=== PATIENT | male | born 1950 | race Caucasian/White ===

== ENCOUNTER → 2017-02-03 | Outpatient (CLI) | payer OTHER ==
[~2017-02-03] MED LIST: ASPI81TA28 PO; CRS10 PO; LOVAZA PO; VALS160T58 PO
--- NOTE | 2017-02-03 12:10 | DIAGNOSTIC IMAGING REPORT ---
BILATERAL CAROTID DOPPLER STUDY HISTORY: Mental status change CAROTID ARTERY SYNDROME COMPARISON: None. TECHNIQUE: Real-time, grayscale, and color Doppler sonography of the carotid arteries was performed. Imaging reviewed in the transverse and longitudinal planes. All measurements were calculated based on NASCET criteria. FINDINGS: Antegrade flow is seen in the bilateral vertebral arteries. The brachial pressures are hemodynamically similar. Mild plaque formation bilaterally The peak systolic velocity within the right ICA is 56. The right systolic ratio is 0.8. The peak systolic velocity within the left ICA is 63. The left systolic ratio is 0.9. IMPRESSION: No hemodynamically significant stenosis seen within the carotid arteries. Mild plaque formation bilaterally Electronically signed by: Marcos Cedillo M.D. 02/03/2017 12:09 PM Dictated Date/Time: 02/03/2017 12:08 PM
== END | disposition home or self-care (01) ==
LOC: C.ULTR 09:25
PROVIDERS: ATTEND Physician Assistant
DX: G45.1 Carotid artery syndrome (hemispheric) (principal)

== ENCOUNTER → 2017-08-21 | Outpatient (CLI) | payer OTHER ==
--- NOTE | 2017-08-21 14:21 | DIAGNOSTIC IMAGING REPORT ---
CT SCAN OF THE ABDOMEN AND PELVIS WITH IV CONTRAST CLINICAL HISTORY: Abdominal aortic aneurysm. COMPARISON STUDY: No priors. TECHNIQUE: Following the IV administration of 94 cc of Optiray 320, CT scan of the abdomen and pelvis is performed from the lung bases to the proximal femora. Images are reviewed in the axial, sagittal, and coronal planes. IV contrast was administered without complication. A dose lowering technique was utilized adhering to the principles of ALARA. FINDINGS: Lung bases: The heart is mildly enlarged and without pericardial effusion. The coronary arteries are densely calcified. Emphysema is suspected. There is no airspace consolidation or pleural effusion. There is a 9 mm left lower lobe pulmonary nodule seen on image #51. An 8 mm pleural-based nodule in the right middle lobe as seen on image #57, and a 4 mm pleural-based nodule in the right lower lobe as seen on image #11. Liver: The contrast-enhanced liver is enlarged, measuring 19.9 cm in length. The liver demonstrates diffusely diminished attenuation consistent with hepatic steatosis. There is no intrahepatic biliary ductal dilatation. The hepatic veins and portal veins are patent. Scattered hepatic cysts measure up to 1.4 cm. Additional subcentimeter hepatic hypodensities may also represent cysts but are too small for definitive characterization. Gallbladder: Unremarkable. Spleen: Normal in size and attenuation. Pancreas: There is near complete fatty atrophy of the pancreas. Adrenal glands: There are numerous low-attenuation adrenal nodules. There is a 2.2 cm hyperdense nodule seen in the left adrenal gland on image #124. Kidneys: The contrast enhanced kidneys are normal in size and without hydronephrosis. The kidneys enhance symmetrically. There are scattered renal cysts. The largest arises from the upper pole of left kidney and measures 2.9 cm. Additional subcentimeter cortical hypodensities also likely represent cysts but are too small for definitive characterization. Abdominal vasculature: There is advanced atherosclerotic calcification as well as mild ectasia of the abdominal aorta. No aneurysm is seen. The aorta measures up to 2.4 cm in maximum diameter. Bowel: Mild to moderate colonic fecal retention is observed. No bowel obstruction is seen. The appendix is not identified and reported surgically absent. Peritoneum: There is no intraperitoneal free air or abdominal ascites. Lymphadenopathy: None. Pelvic viscera: The prostate gland is mildly enlarged and heterogeneous. The bladder is normal as visualized. Skeletal structures: The skeletal structures are osteopenic. Mild degenerative change is noted throughout the lumbar spine. No lytic or blastic lesions are seen. A sclerotic focus in the left pedicle of L1 likely represents a bone island. IMPRESSION: 1. There is advanced atherosclerotic calcification and mild ectasia of the abdominal aorta. No aneurysm is seen. 2. No acute infectious or inflammatory findings are identified in the abdomen or pelvis. 3. Cardiomegaly. 4. There are at least 3 indeterminant pulmonary nodules identified at both lung bases measuring up to 9 mm. See report of chest CT performed concurrently for detailed intrathoracic findings. 5. Hepatomegaly and hepatic steatosis. 6. There are bilateral low-attenuation adrenal nodules which likely represent adenomas. A 2.2 cm slightly hyperdense nodule is seen in the left adrenal gland. These cannot be definitively characterized on this examination. If further assessment is desired MRI could be considered. 7. Additional findings as above. Electronically signed by: Rodriguez Carrizales M.D. 08/21/2017 2:20 PM Dictated Date/Time: 08/21/2017 2:06 PM
--- NOTE | 2017-08-21 15:20 | DIAGNOSTIC IMAGING REPORT ---
CT OF THE CHEST WITH IV CONTRAST CLINICAL HISTORY: Pulmonary nodule. COMPARISON STUDY: None available at time of interpretation. TECHNIQUE: Following IV administration of 94 mL of Optiray-320, helical axial images of the chest were obtained. Sagittal and coronal reconstructions were viewed as well as maximal intensity projections on an independent 3-D workstation. A dose lowering technique was utilized adhering to the principles of ALARA. CT DOSE: 1369.26 mGy.cm FINDINGS: No enlarged axillary, mediastinal or hilar lymph nodes are identified. The size of the heart is normal. There is moderate coronary artery calcification. No pericardial effusion. Central airways are patent. No pneumothorax or pleural effusion is noted. There is mild paraseptal and centrilobular emphysema. Note is made of a circumscribed 8 mm x 5 mm left lower lobe pulmonary nodule shown image 204 of 316. A few tiny calcified granulomas are present. No suspicious osseous lesions within the bony thorax are noted. A 2 cm left adrenal nodule is noted. Several hypodense hepatic lesions are noted as well as a hypodense splenic lesion. These findings are better depicted on the abdominal CT. Please see that report for further description. IMPRESSION: 1. Circumscribed 8 mm x 5 mm left lower lobe pulmonary nodule. The nodule is indeterminate. If previous studies become available for comparison, an addendum could be issued. Otherwise, this nodule could be followed according to the attached recommendations. 2. No acute intrathoracic findings. 3. Mild emphysema. 4. Moderate coronary artery calcification. SOLID NODULES Solitary nodule size: 6-8 mm * low risk patients: follow-up at 6-12 months, then consider further follow-up at 18-24 months * high risk patients: initial follow-up CT at 6-12 months and then at 18-24 months if no change Electronically signed by: Byron Hastings M.D. 08/21/2017 3:19 PM Dictated Date/Time: 08/21/2017 2:05 PM
== END | disposition home or self-care (01) ==
LOC: C.CTS 13:40
PROVIDERS: ATTEND Physician Assistant
DX: R91.1 Solitary pulmonary nodule (principal); I71.4 Abdominal aortic aneurysm, without rupture

== ENCOUNTER → 2017-11-15 | Outpatient (CLI) | payer OTHER ==
--- NOTE | 2017-11-15 14:37 | DIAGNOSTIC IMAGING REPORT ---
R HIP UNILATERAL 2 VIEWS HISTORY: 67 years-old Male TROCHANTERIC BURSITIS R HIP acute right hip pain with bursitis COMPARISON: CT abdomen and pelvis 08/21/2017 TECHNIQUE: 2 views of the right hip FINDINGS: There are mild degenerative changes about the right hip without acute fracture or dislocation. Mild marginal spurring about the intertrochanteric. Phleboliths about the right hemipelvis are noted. Imaged right hemipelvis appears intact without acute fracture or dislocation. IMPRESSION: Mild degenerative changes without acute fracture or dislocation. The above report was generated using voice recognition software. It may contain grammatical, syntax or spelling errors. Electronically signed by: Sunil Gary M.D. 11/15/2017 2:36 PM Dictated Date/Time: 11/15/2017 2:34 PM
--- NOTE | 2017-11-15 14:47 | DIAGNOSTIC IMAGING REPORT ---
LUMBAR SPINE 3 VIEWS HISTORY: TROCHANTERIC BURSITIS R HIP COMPARISON: None. FINDINGS: There is no fracture. No subluxation. Mild/moderate facet osteoarthritis within the lower lumbar spine. The sacrum is intact. Mild disc space narrowing at L1-L2 with endplate osteophytes. Remaining disc spaces are preserved. IMPRESSION: No fracture or subluxation within the lumbar spine. Degenerative changes as described above. Electronically signed by: Horace Sy M.D. 11/15/2017 2:46 PM Dictated Date/Time: 11/15/2017 2:41 PM
== END | disposition home or self-care (01) ==
LOC: C.RAD 14:13
PROVIDERS: ATTEND Physician Assistant
DX: M70.61 Trochanteric bursitis, right hip (principal)

== ENCOUNTER 2022-04-19 06:04 | Inpatient (IN) ==
--- NOTE | 2022-04-06 10:09 | PAT Medication Instructions ---
Medication Instructions Date of Service April 06, 2022 Home Medications amlodipine 10 mg tablet 10 mg PO QAM ibuprofen 200 mg tablet 800 mg PO QAM omega-3 fatty acids-fish oil 300 mg-500 mg capsule (Fish Oil) 3 cap PO QAM omeprazole 20 mg tablet,delayed release 20 mg PO QAM rosuvastatin 10 mg tablet 10 mg PO QAM valsartan 160 mg tablet 320 mg PO QAM hydrocodone 5 mg-acetaminophen 325 mg tablet 1 tab PO BID PRN Pain tramadol 50 mg tablet (Ultram) 50 mg PO BID PRN Pain ASK your surgeon for instructions ibuprofen 200 mg tablet 800 mg PO QAM STOP taking 2 weeks before surgery (or as soon as possible if surgery is within 2 weeks) omega-3 fatty acids-fish oil 300 mg-500 mg capsule (Fish Oil) 3 cap PO QAM DO NOT take the morning of surgery valsartan 160 mg tablet 320 mg PO QAM Take morning of surgery With a small sip of water, OTHERWISE NOTHING TO EAT OR DRINK AFTER MIDNIGHT: amlodipine 10 mg tablet 10 mg PO QAM omeprazole 20 mg tablet,delayed release 20 mg PO QAM rosuvastatin 10 mg tablet 10 mg PO QAM hydrocodone 5 mg-acetaminophen 325 mg tablet 1 tab PO BID PRN Pain .ig tramadol 50 mg tablet (Ultram) 50 mg PO BID PRN Pain (if needed) Take evening before surgery hydrocodone 5 mg-acetaminophen 325 mg tablet 1 tab PO BID PRN Pain (if needed) tramadol 50 mg tablet (Ultram) 50 mg PO BID PRN Pain (if needed) Other Notes If you have any questions please call us at [phone] or [phone] or [phone] or [phone]
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
[~2022-04-19 06:04] MED LIST changes: +ACETAMINOPHEN 500 MG TAB PO SCH; -ASPI81TA28 PO; -CRS10 PO; +CeleBREX 200 MG CAP PO SCH; +GABAPENTIN 300 MG CAP PO SCH; -LOVAZA PO; +LR 15ML/HR IV SCH; -VALS160T58 PO; +ceFAZolin 2000MG 2,000 MG/15 ML SYR IV SCH
[2022-04-19] MEDS ORDERED: fentaNYL citrate 100 MCG/2 ML VIAL ONE ×2 (06:54→08:49)
[2022-04-19] MEDS ORDERED: BUPIVACAINE/EPINEPHRINE 0.25% 1:200,000 30 ML VIAL ONE (07:11)
[2022-04-19] MEDS ORDERED: ceFAZolin 330 MG/ML 1 GM VIAL ONE (07:11)
[2022-04-19] MEDS ORDERED: ATROPINE SULFATE 0.1 MG/ML 10ML SYR IV PRN (07:28)
[2022-04-19] MEDS ORDERED: ONDANSETRON INJ 2 MG/ML 2 ML VIAL IV PRN ×2 (07:28→11:09)
[2022-04-19] MEDS ORDERED: ePHEDrine sulfate 50 MG/ML AMP IV PRN (07:28)
--- NOTE | 2022-04-19 07:31 | History & Physical Bridge Note ---
Date of Service April 19, 2022 History & Physical Bridge Note I have examined the patient, reviewed the History & Physical and in the interval since the performance of the History & Physical I have noted the following changes of clinical significance: no changes noted
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
[2022-04-19] MEDS ORDERED: LARYING-O-JET KIT (LTA) ONE (08:17)
[2022-04-19] MEDS ORDERED: DEXAMETHASONE SOD INJ 4 MG/ML VIAL ONE (08:17)
[2022-04-19] MEDS ORDERED: ONDANSETRON INJ 2 MG/ML 2 ML VIAL ONE (08:17)
[2022-04-19] MEDS ORDERED: PROPOFOL IV EMULSION 10 MG/ML 20 ML VIAL IV ONE (08:17)
[2022-04-19] MEDS ORDERED: ROCURONIUM BROMIDE 10 MG/ML 5 ML VIAL IV ONE (08:17)
[2022-04-19] MEDS ORDERED: GLYCOPYRROLATE 0.2 MG/ML VIAL ONE (08:17)
[2022-04-19] MEDS ORDERED: NEOSTIGMINE METHYLSULFATE 1 MG/ML 10ML VIAL ONE (08:17)
[2022-04-19] MEDS ORDERED: ePHEDrine sulfate 50 MG/ML SYR ONE (08:17)
[2022-04-19] MEDS ORDERED: FLOSEAL HEMOSTATIC MATRIX 10ML TOP ONE (08:32)
--- NOTE | 2022-04-19 09:34 | Operative Report ---
Post Operative Report Pre & Post Diagnosis Operation Date: 04/19/22 07:45 Pre-Op Diagnosis: Spinal Stenosis, Lumbar Region without Neurogenic Post-Op Diagnosis: Spinal Stenosis, Lumbar Region without Neurogenic I identified the patient and participated in the time-out.: Yes Procedure Operation Date: 04/19/22 07:45 Actual Procedures #1 lumbar decompression with bilateral medial facetectomies and foraminotomies L3-L4 L4-5 p. er #2 posterior spinal fusion L4-5. #3 placement posterior instrumentation L4-5. #4 interbody fusion L4-5 per #5 placement of Spira 15 x 26 mm cage at L4-5. #6 placement locally harvested morselized autograft in the posterior gutters. #7 placement I factor combined with V toss interbody space and posterior lateral gutters. Surgeon Agustín Navarrete, Wildlife Refuge Specialist Gayle Damon Estimated Blood Loss 250 Findings Consistent with Post-Op Diagnosis Specimens None Indications This is a 72-year-old male who presents in the emergency diagnosis of failed course of nonoperative care is here for surgical invention. Description of Procedure Patient was met with identified informed consent obtained. Patient was then taken to the operative suite underwent an patient placed in a prone position the [place] table top Sam frame. All bony prominences well-padded eyes inspected to ensure no external pressure placed upon the. This point lumbar spine was prepped and draped in a sterile fashion. Sharp dissection with the assistance pericardial form down to and exposing the lamina transverse processes of L4-L5 bilaterally. From caudal to cephalad fashion complete laminectomy L4 partial laminectomy of L3 was performed including bilateral medial facetectomies and foraminotomies addressing severe spinal stenosis. Pedicle screws were then placed in L4-5 bilaterally with assistance of fluoroscopy and the properly sized walt placed. Palliative transforaminal portion of right complete discectomy of L4-L5 was performed endplates curetted to subcortical bleeding bone and a 15 x 26 mm spiral cage with I factor tapped in position. The rods then compressed locked into final position bilaterally. The transverse processes of L4-L5 burred to subcortically bone. I factor model V toss and locally harvested morselized autograft was placed in the posterior gutters. 15 round PANDA drain inserted. The incision was closed with 1 Vicryl to fascia 2-0 Vicryl subcutaneously and 4 Monocryl for final skin closure. Steri-Strip Steri-Strips placed. Patient waken taken PACU stable condition. Please note spinal cord monitoring was utilized at the procedure no changes noted. Lastly Gayle Damon was present at the entire procedure involved the patient positioning complex portions of the surgery and fascial closure. I attest to the content of the Intraoperative Record and any orders documented therein. Any exceptions are noted below.
[2022-04-19] MEDS: fentaNYL citrate 100 MCG/2 ML VIAL IV PRN ×2 (09:55→10:00)
--- NOTE | 2022-04-19 10:11 | Fluoroscopy Report ---
FL lumbar spine 2-3V HISTORY: 72 years-old Male L4-5 DFI chronic low back pain COMPARISON: Lumbar spine radiographs 01/24/2022 TECHNIQUE: 2 spot fluoroscopic images of the lumbar spine were obtained utilizing 17.8 seconds fluoro scopy time FINDINGS: Laminectomy, posterior interbody walt and screw fusion with discectomy at L4-L5. The hardware appears intact. Satisfactory alignment. No unexpected opaque foreign bodies. IMPRESSION: Fluoroscopic assistance as above. ACT 112: Negative or not required by law. The above report was generated using voice recognition software. It may contain grammatical, syntax o r spelling errors. Electronically signed by: Osvaldo Gary M.D. 04/19/2022 10:09 AM
[2022-04-19] MEDS: HYDROmorphone INJ 2 MG/ML SYR/VIAL IV PRN ×4 (10:23→10:38)
[2022-04-19] MEDS ORDERED: METOCLOPRAMIDE HCL INJ 5 MG/ML 2 ML VIAL IV PRN (11:09)
[2022-04-19] MEDS ORDERED: MAGNESIUM HYDROXIDE SUSP 30 ML UDC PO PRN (11:09)
[2022-04-19] MEDS ORDERED: NALOXONE HCL 0.4 MG/1 ML VIAL/CARP IV PRN (11:09)
[2022-04-19] MEDS ORDERED: HYDROmorphone INJ 0.5 MG/0.5 ML SYR IV PRN (11:09)
[2022-04-19] MEDS ORDERED: ALUMINUM/MAGNESIUM SUSP 30 ML UDC PO PRN (11:09)
[2022-04-19] MEDS ORDERED: bisacodyL 10 MG SUPP PR PRN (11:09)
[2022-04-19] MEDS ORDERED: hydrOXYzine HCl 25 MG TAB PO PRN (11:09)
[2022-04-19] MEDS ORDERED: diphenhydrAMINE Capsule 25 MG CAP PO PRN (11:09)
[2022-04-19] MEDS ORDERED: PROMETHAZINE HCL 12.5 MG in SODIUM CHLORIDE 0.9% 50 ML IV PRN (11:09)
[2022-04-19] MEDS ORDERED: PHARMACY GLYCEMIC MGMT CONSULT PRN (11:09)
[2022-04-19] MEDS ORDERED: ONDANSETRON 4 MG OD TAB PO PRN (11:09)
[2022-04-19] MEDS ORDERED: HYDROmorphone INJ 1 MG/ML SYRINGE IV PRN (11:09)
[2022-04-19] MEDS ORDERED: SOD PHOSPHATE/SOD BIPHOSPHATE ENEMA 132 ML BTL PR PRN (11:09)
[2022-04-19] MEDS ORDERED: FAMOTIDINE 20 MG TAB PO PRN (11:09)
[2022-04-19] MEDS ORDERED: LORazepam 0.5 MG TAB PO PRN (11:09)
[2022-04-19] MEDS ORDERED: traMADol HCL 50 MG TABLET PO PRN (11:09)
[2022-04-19] MEDS ORDERED: ACETAMINOPHEN 500 MG TAB PO PRN (11:09)
[2022-04-19] MEDS ORDERED: LORazepam 0.5 MG in SYRINGE 0.25 ML IV PRN (11:09)
--- NOTE | 2022-04-19 12:00 | Pharmacy Report ---
Pharmacy Glycemic Short Note 2 - Date of Service April 19, 2022 - Glycemic Short BSG Results (Last 24 hours): 04/19/22 04/19/22 06:50 09:48 POC Glucose 148 H 202 H OUTPATIENT ANTIDIABETIC REGIMEN: * jardiance 25 mg daily, metformin 1000 mg hs * A1c 6.0 04/06/22 ASSESSMENT: * Type 2 diabetic, now s/p spinal procedure. Managed only on oral agents at home. Pharmacy consulted to help with glycemic management. * Dexamethasone given in OR intraoperatively, anticipate steroid induced hyperglycemia. Likely will utilize low dose basal insulin to help cover steroids ~0.2 units/kg * Will start stress of 2/3 for novolog PLAN FOR INPATIENT GLYCEMIC CONTROL: * Hold outpatient oral diabetes medications * Basal insulin * Lantus 15-20 units x 1 postop - awaiting postop BSG * Bolus insulin * NovoLog per scale ACHS or Q6hrs while NPO * Goal Range: Low 110 mg/dL - High 140 mg/dL * Correction Factor: 25 mg/dL/unit * Nutritional / Prandial insulin per carb ratio of 1 unit per 9 grams CHO consumed
[2022-04-19] MEDS ORDERED: GLUCOSE 10 TAB/TUBE PO PRN ×2 (12:15→13:36)
[2022-04-19] MEDS ORDERED: CARBOHYDRATES FOR HYPOGLYCEMIA PO PRN ×2 (12:15→13:36)
[2022-04-19] MEDS ORDERED: GLUCAGON FOR INJ 1 MG VIAL IM PRN (12:15)
[2022-04-19] MEDS ORDERED: DEXTROSE 50% 50 ML SYRINGE IV PRN ×2 (12:15→13:36)
[2022-04-19] MEDS ORDERED: GLUCOSE 40% GEL 15 GM TUBE PO PRN ×2 (12:15→13:36)
[2022-04-19] MEDS ORDERED: LANTUS PER UNIT CHARGE SQ ONE (12:45)
--- NOTE | 2022-04-19 13:08 | Anesthesiology Progress Note ---
Date of Service April 19, 2022 Anesthesia Post Procedure Vital Signs Vital Signs: Temp Pulse Pulse Resp BP Pulse Ox O2 Del Method 04/19/22 12:27 36.7 C 107 H 20 119/76 92 Room Air 04/19/22 11:55 36.6 C 93 H 17 114/78 90 Room Air 04/19/22 11:35 94 H 19 117/79 93 Room Air 04/19/22 11:05 36.4 C L 96 H 24 134/92 98 Room Air 04/19/22 10:55 82 18 142/97 H 97 Room Air 04/19/22 10:45 85 12 150/83 H 99 Room Air 04/19/22 10:35 81 17 126/87 98 Room Air 04/19/22 10:25 71 16 126/77 97 Room Air 04/19/22 10:15 88 16 122/77 95 Room Air 04/19/22 10:05 71 14 131/77 97 Room Air 04/19/22 09:55 73 16 129/75 99 Oxymask 04/19/22 09:45 36.0 C L 92 H 16 112/75 100 Oxymask 04/19/22 06:27 36.8 C 75 18 148/91 H 98 Room Air O2 Flow Rate 04/19/22 12:27 04/19/22 11:55 04/19/22 11:35 04/19/22 11:05 04/19/22 10:55 04/19/22 10:45 04/19/22 10:35 04/19/22 10:25 04/19/22 10:15 04/19/22 10:05 04/19/22 09:55 4 04/19/22 09:45 6 04/19/22 06:27 Pain Intensity Back: Pain Intensity: 2 Transfer of Care Handoff Completed per policy Notes Mental Status: alert / awake / arousable and participated in evaluation Patient Amnestic to Procedure: Yes Nausea / Vomiting: adequately controlled Pain: adequately controlled Airway Patency, RR, SpO2: stable & adequate BP & HR: stable & adequate Hydration State: stable & adequate Anesthetic Complications: no major complications apparent and Pt Satisfied with anesthetic care
[2022-04-19] MEDS: INSULIN ASPART PER UNIT SC SCH ×3 (13:24→21:37)
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
[2022-04-19] MEDS ORDERED: GLUCAGON FOR INJ 1 MG VIAL SQ PRN (13:36)
[2022-04-19] MEDS: ACETAMINOPHEN 1,000 MG/100 ML VIAL IV PRN (14:25)
[2022-04-19] MEDS: SODIUM CHLORIDE 0.9% 1000ML 1,000 ML IV SCH (14:25)
[2022-04-19] MEDS: ceFAZolin 2000MG 2,000 MG/15 ML SYR IV SCH (15:50)
[2022-04-19] MEDS ORDERED: INSULIN ASPART PER UNIT SC SCH (16:30)
[2022-04-19] MEDS ORDERED: LANTUS PER UNIT CHARGE SQ SCH (21:00)
[2022-04-19] MEDS: DOCUSATE SODIUM/SENNA 50/8.6MG TAB PO SCH (21:38)
[2022-04-19] MEDS: oxyCODONE HCL IR 5 MG TAB (IMMEDIATE RELEASE) PO PRN (21:38)
[2022-04-20] MEDS ORDERED: INSULIN ASPART PER UNIT SC SCH
[2022-04-20] MEDS: ceFAZolin 2000MG 2,000 MG/15 ML SYR IV SCH (00:04)
[2022-04-20] MEDS: SODIUM CHLORIDE 0.9% 1000ML 1,000 ML IV SCH (00:10)
[2022-04-20] MEDS: ACETAMINOPHEN 1,000 MG/100 ML VIAL IV PRN (04:11)
[2022-04-20] MEDS ORDERED: POLYETHYLENE (MIRALAX) 17 GM PACK ONE (04:26)
[2022-04-20] MEDS: POLYETHYLENE (MIRALAX) 17 GM PACK PO SCH ×4 (04:27→23:19)
[2022-04-20 06:33] LABS: Basophils # (auto) 0.01 K/uL (0-0.2); Basophils % (auto) 0.1 %; Eosinophils # (auto) 0.01 K/uL (0-0.50); Eosinophils % (auto) 0.1 %; Hematocrit (blood only) 42.2 % (40.1-51.0); Hemoglobin 14.3 g/dl (14.0-18.0); Immature Granulocytes # (auto) 0.05 K/uL (0.00-0.02); Immature Granulocytes % (auto) 0.4 %; Lymphocytes # (auto) 1.44 K/uL (1.2-3.4); Lymphocytes % (auto) 11.1 %; Mean Corpuscular Hemoglobin 29.8 pg (25.0-34.0); Mean Corpuscular Hgb Conc 33.9 g/dL (32.0-36.0); Mean Corpuscular Volume 87.9 fL (80.0-100.0); Mean Platelet Volume 11.5 fL (9.4-12.4); Monocytes # (auto) 1.09 K/uL (0.24-0.82); Monocytes % (auto) 8.4 %; Neutrophils # (auto) 10.36 K/uL (1.4-6.5); Neutrophils % (auto) 79.9 %; Platelet Count 148 K/uL (130-400); RDW Coefficient of Variation 12.3 % (11.5-14.5); RDW Standard Deviation 39.9 fL (36.4-46.3); White Blood Count 12.96 K/ul (4.8-10.8)
[2022-04-20 06:52] LABS: BUN Creatinine Ratio 21.7 (10-20); Calcium 10.5 mg/dl (8.5-10.1); Creatinine Clr Calc Pharmacy 106.4 ml/min; Est GFR (African American) 108.4 ml/min; Est GFR (Non-African American) 93.5 ml/min; Potassium 4.1 mmol/L (3.5-5.1)
[2022-04-20] MEDS: oxyCODONE HCL IR 5 MG TAB (IMMEDIATE RELEASE) PO PRN (07:33)
[2022-04-20 07:50] LABS: Estimated Average Glucose 123 mg/dl; Hemoglobin A1C 5.9 % (4.5-5.6)
--- NOTE | 2022-04-20 08:11 | Orthopedic Progress Note ---
Date of Service April 20, 2022 Assessment & Plan (1) Neurogenic claudication due to lumbar spinal stenosis: Plan: Farhat is postoperative day 1 status post TLIF L4-5. He is doing great. We will start physical therapy today. Maintain PANDA drain. Continue with pain control. DVT prophylaxis is in the form of teds and SCDs. Continue with bowel regimen. Anticipate discharge home within the next 24 to 48 hours Admission and Anticipated Discharge Date Admission Date: April 19, 2022 Subjective Farhat is postoperative day 1 status post TLIF L4-5. He is doing fantastic. Right lower extremity pain has resolved. Back pain is controlled. PANDA drain output last shift was 60 cc. H&H are 14.3 and 42.2 respectively. No other complaints. He has had an uneventful evening. Review of Systems Review of Systems: All systems reviewed & are unremarkable except as noted in HPI & below Physical Exam Physical Exam: Alert and oriented x3 Sitting in a chair no acute distress Lumbar dressing is clean dry and intact with functioning PANDA drain Calf soft nontender bilaterally Strength intact bilateral lower extremities Results & Data ([facility]) Vital Signs (Past 12 Hours) Vital Signs Temp Pulse Resp BP Pulse Ox O2 Del Method 04/20/22 04:10 36.8 C 64 17 132/89 96 Room Air 04/19/22 22:03 36.6 C 69 18 123/77 96 Room Air
[2022-04-20] MEDS: ROSUVASTATIN CALCIUM 10 MG TAB PO SCH (09:01)
[2022-04-20] MEDS: PANTOprazole 40 MG TAB PO SCH (09:01)
[2022-04-20] MEDS: dexAMETHasone 6 MG in SYRINGE 0 ML IV SCH (09:01)
[2022-04-20] MEDS: amLODIPine BESYLATE 5 MG TAB PO SCH (09:02)
[2022-04-20] MEDS: VALSARTAN 80 MG TAB PO SCH (09:02)
[2022-04-20] MEDS: LANTUS PER UNIT CHARGE SQ SCH (09:26)
[2022-04-20] MEDS: INSULIN ASPART PER UNIT SC SCH ×4 (09:27→20:45)
--- NOTE | 2022-04-20 14:50 | Hospitalist Progress Note ---
Date of Service April 20, 2022 Assessment & Plan (1) Neurogenic claudication due to lumbar spinal stenosis: (2) Diabetes type 2, controlled: (3) HTN (hypertension): (4) HLD (hyperlipidemia): (5) GERD (gastroesophageal reflux disease): Plan Mr. Sam is a 72 year old male who is a patient of Dr. Navarrete's who underwent L4-L5 decompression/fusion surgery today after failed conservative management. Patient has an additional PMH that includes: DM2. GERD, HLD, and HTN . Neurogenic claudication due to lumbar spinal stenosis: POD#1 s/p L4-L5 decompression/fusion with Dr. Navarrete EBL 250mL Per ortho for pain control, wound care, anticoagulation and activities. Monitor H&H; labs in a.m. Continue incentive spirometry PT/OT when appropriate DM2: Controlled by diet and oral agents; will hold Jardiance and Metformin while inpt Glycemic Pharmacy consulted for SSI while inpt and on Decadron AC/HS FSBS. A1c 5.9 this admission HTN: Stable; continue Amlodipine and Valsartan HLD: Continue rovustatin; follow lipid panel as outpatient GERD: Stable; continue Omeprazole Disposition: PCP: Mckinley Chan PA-C VTE Prophylxis: SCDs/TEDS Code: Full code Admission and Anticipated Discharge Date Admission Date: April 19, 2022 Subjective Patient seen and examined at bedside as a follow-up of medical management for status post lumbar surgery. Patient was sitting up in chair, on room air, NAD, denies any new acute events overnight, reports eating okay, has not moved bowel, is moving gas, denies fever/headache/chills/chest pain/palpitation/sore throat/cough/other review of symptoms. Physical Exam Physical Exam: GENERAL: Alert and oriented x3. NAD, on RA. HEENT: No pallor, no icterus. Pupils equal, round and reactive to light. Oral mucosa moist. NECK: No JVD, no neck masses. HEART: S1 and S2 heard. Regular rate and rhythm. No murmur, no gallop. RESPIRATORY SYSTEM: Normal AP diameter. No accessory muscle use. No wheezing, no crackles. ABDOMEN: Soft, bowel sounds present, nontender, no distention. CENTRAL NERVOUS SYSTEM: No facial droop. Speech is clear. Obeys simple commands. Moves extremities. EXTREMITIES: No edema, no erythema seen. Low back with clean dressing without soakage. PANDA drain with minimal ser osanguineous collection noted. Results & Data Results & Data ([facility]) Vital Signs (Past 12 Hours) Vital Signs Temp Pulse Resp BP BP Pulse Ox O2 Del Method 04/20/22 14:12 36.8 C 78 16 116/72 98 Room Air 04/20/22 11:26 36.8 C 74 16 111/73 98 Room Air 04/20/22 08:31 37 C 68 126/82 04/20/22 04:10 36.8 C 64 17 132/89 96 Room Air
[2022-04-20] MEDS: DOCUSATE SODIUM/SENNA 50/8.6MG TAB PO SCH (20:46)
[2022-04-21] MEDS: POLYETHYLENE (MIRALAX) 17 GM PACK PO SCH ×2 (06:21→12:44)
--- NOTE | 2022-04-21 08:13 | Discharge Summary ---
Date of Service April 21, 2022 Admission HPI Per Admitting Provider Patient is postoperative day 2 status post TLIF L4-5. He is doing fantastic. Right leg pain has resolved. He feels great when he is up and walking. PANDA drain output last shift was 10 cc. Yesterday in physical therapy ambling 300 feet plus the hallways. He is passing flatus and has had a small bowel movement. Has had an uneventful evening. No new complaints Admission Exam (Per Admitting) Constitutional + thin Eyes normal visual abraham by confrontation ENMT external ear and nose normal, oropharynx normal Neck normal visual inspection Respiratory normal respiratory effort Cardiovascular Extremities: normal capillary refill Gastrointestinal (Abdomen) Inspection/Auscultation: abdomen normal to inspection Musculoskeletal Spine: + pain with thoraco-lumbar ROM and + straight leg raise positive Extremities: extremities normal to inspection Gait: + antalgic gait Skin normal turgor Neurologic normal touch/pain/proprioception and moves all extremities Psychiatric A+Ox3, euthymic affect Eye Contact: good eye contact Speech: normal rate/rhythm/volume of speech Discharge Data Consultations 04/19/22 11:09 Consult Hospitalist Routine Procedures Performed Operation Date: 04/19/22 07:45 Actual Procedures p L4-L5 Decompression and Fusion, Spinal Cord Monitoring(Not Applicable) - Agustín Navarrete, Hospital Course (1) Neurogenic claudication due to lumbar spinal stenosis: Patient is being discharged home on postoperative day 2 status post TLIF L4-5. He has had an uneventful hospital course. Lab values have been stable. Pain is controlled. He is passing flatus and had a small bowel movement. He is made great progress daily with physical therapy. Discharge Instructions ACTIVITY RECOMMENDATIONS: SELF CARE INSTRUCTIONS AFTER THORACIC/LUMBAR FUSIONS 1. You may walk to your tolerance. It is good exercise for your legs and back. Expect some back and intermittent leg aches and pains. 2. You may perform "counter-top" level activities (make a sandwich, roya with a project, etc.). 3. No bending or lifting of more than 10 pounds or back twisting of any nature (roll like a log when turning in bed). 4. You may ride in a car for 20-30 minutes at a time. No driving until after your first visit with your doctor. 5. Frequent changes of position and restricting sitting to 30 minutes at a time will help limit the amount of back spasms and stiffness you may experience. 6. You may discontinue the use of ambulatory aids (cane, crutches, etc.) once your strength and confidence allow. 7. You may senior c software engineer the shower and let water strike your incision when you arrive home at least once daily. Do not take a tub bath, sit in a hot tub or go into a swimming pool until after your first recheck in the office. SPECIAL CARE INSTRUCTIONS: VERY IMPORTANT TO READ AND REVIEW A. Your surgical incision has been closed with a cosmetic suture under the skin that will dissolve in about 6 weeks. In 14 days, you can use a pair of clean scissors and cut the suture that is left outside of the skin at the ends of your incision. 1. The small skin tapes can be removed 7 days after surgery if they have not fallen off by that point. 2. You may keep the wound open to air as much as possible to promote healing after post-op day number 5 unless told otherwise by your doctor. 3. If you think the wound looks like it is becoming infected (redness or worsening drainage) and/or you are experiencing fever, chill or worsening back pain and muscle spasms, contact the office so that we may evaluate you as soon as possible. B. Complications are uncommon, but please contact us if you have any signs or symptoms of: 1. wound infection (fever higher than 102.5 degrees F, redness, separation of wound, drainage, or increasing pain from the incision) 2. blood clots in legs (pain, swelling, redness and warmth in legs) 3. urinary tract infection (fever higher than 102.5 degrees F, burning upon urination or increased frequency of urination) 4. nerve problems (inability to walk on your toes or heels, numbness, loss of bowel or bladder control) 5. any other symptoms that concern you C. Please call the office at if you have any concerns or questions about your operation or recovery. D. No smoking! Smoking drastically decreases the chance of a solid fusion. E. Do not take any anti-inflammatory medications (Indocin, Advil, Motrin, Aspirin, Naprosyn, etc.) as these may inhibit the chance of a solid fusion. Tylenol is okay to take for pain. MANAGING PAIN AFTER SPINAL SURGERY 1. Narcotic medication is intended for short-term use and will be provided for surgical pain. Surgical pain usually lasts for a period of 4-6 weeks. Narcotic medication includes Percocet, Vicodin, Darvocet, Tylenol #3 or Lortab. 2. Longer-term pain is more appropriately treated with non-narcotic medication such as Tylenol ES. 3. Muscle spasm is not appropriately treated with narcotics. Muscle relaxers such as Soma, Flexeril or Skelaxin can be used along with Tylenol ES. 4. Remember that we all live with some "aches and pains". This is not unusual or uncommon after an injury or as we get older. a. Back pain is expected and may include muscle spasms for 4 to 6 weeks after surgery. The pain should gradually improve. If the pain worsens for no apparent reason, please contact the office. b. Intermittent leg pain may also be experienced and should not be concerned about unless it worsens for no apparent reason. If so, please contact the office. 5. We will provide appropriate medication within the normal guidelines of their prescribed use. We will also be very cautious and aware of potential abuse and extended duration of patients' medication needs. a. Pain medications are for your comfort and to assist with sleep and rest so that the tissue can heal. They are not provided in order to return to normal activity and should not be used through the day. To do so or worsening pain at night can result from ongoing tissue damage and development of tolerance to the prescribed medicine. 6. Please allow 2-3 days to process refills. Prescriptions will not be mailed but must be picked up at the office. FOLLOW UP VISIT: Keep your scheduled follow-up appointment. Any questions, please call the office at .
[2022-04-21] MEDS: VALSARTAN 80 MG TAB PO SCH (08:20)
[2022-04-21] MEDS: dexAMETHasone 6 MG in SYRINGE 0 ML IV SCH (08:20)
[2022-04-21] MEDS: ROSUVASTATIN CALCIUM 10 MG TAB PO SCH (08:21)
[2022-04-21] MEDS: amLODIPine BESYLATE 5 MG TAB PO SCH (08:21)
[2022-04-21] MEDS: PANTOprazole 40 MG TAB PO SCH (08:21)
[2022-04-21] MEDS: INSULIN ASPART PER UNIT SC SCH ×2 (08:46→12:54)
[2022-04-21] MEDS: LANTUS PER UNIT CHARGE SQ SCH (08:47)
[2022-04-21] MEDS ORDERED: NovoLIN-N (NPH) PER UNIT CHARGE SQ SCH (09:00)
--- NOTE | 2022-04-21 13:38 | Hospitalist Progress Note ---
Date of Service April 21, 2022 Assessment & Plan (1) Neurogenic claudication due to lumbar spinal stenosis: (2) Diabetes type 2, controlled: (3) HTN (hypertension): (4) HLD (hyperlipidemia): (5) GERD (gastroesophageal reflux disease): Plan Mr. Sam is a 72 year old male who is a patient of Dr. Navarrete's who underwent L4-L5 decompression/fusion surgery today after failed conservative management. Patient has an additional PMH that includes: DM2. GERD, HLD, and HTN . Neurogenic claudication due to lumbar spinal stenosis: POD#1 s/p L4-L5 decompression/fusion with Dr. Navarrete EBL 250mL Per ortho for pain control, wound care, anticoagulation and activities. H&H stable. Reports improvement in RLE radicular symptoms. Continue incentive spirometry Doing well with PT and OT. DM2: Controlled by diet and oral agents; will hold Jardiance and Metformin while inpt Glycemic Pharmacy consulted for SSI while inpt and on Decadron AC/HS FSBS. A1c 5.9 this admission HTN: Stable; continue Amlodipine and Valsartan HLD: Continue rovustatin; follow lipid panel as outpatient GERD: Stable; continue Omeprazole Disposition: Likely today. PCP: Mckinley Chan PA-C VTE Prophylxis: SCDs/TEDS, pharmaco prophylaxis per primary team. Code: Full code Admission and Anticipated Discharge Date Admission Date: April 19, 2022 Subjective Patient seen and examined at bedside as a follow-up of medical management for status post lumbar surgery. Patient was sitting up in chair, on room air, NAD, denies any new acute events overnight, reports eating okay, has not moved bowel, is moving gas, denies fever/headache/chills/chest pain/palpitation/sore throat/cough/other review of symptoms. Reports improvement in RLE radicular symptoms. Physical Exam Physical Exam: GENERAL: Alert and oriented x3. NAD, on RA. HEENT: No pallor, no icterus. Pupils equal, round and reactive to light. Oral mucosa moist. NECK: No JVD, no neck masses. HEART: S1 and S2 heard. Regular rate and rhythm. No murmur, no gallop. RESPIRATORY SYSTEM: Normal AP diameter. No accessory muscle use. No wheezing, no crackles. ABDOMEN: Soft, bowel sounds present, nontender, no distention. CENTRAL NERVOUS SYSTEM: No facial droop. Speech is clear. Obeys simple comma nds. Moves extremities. EXTREMITIES: No edema, no erythema seen. Low back with clean dressing without soakage. PANDA drain with minimal serosanguineous collection noted. Results & Data Results & Data ([facility]) Vital Signs (Past 12 Hours) Vital Signs Temp Pulse Resp BP Pulse Ox O2 Del Method 04/21/22 07:18 37.4 C 61 16 125/80 100 Room Air
== END 2022-04-21 14:18 | disposition home or self-care (01) | DRG 455 ==
LOC: ASU 06:04 → PACUINP 09:37 → 3E 12:19